=== PATIENT | female | born 1995 | race Caucasian/White ===

== ENCOUNTER 2016-03-22 17:28 | Emergency (ER) | payer BC ==
[2016-03-22] MEDS ORDERED: NS 0.9% 1000 ML* 1,000 ML IV ONE (18:45)
[2016-03-22 18:55] LABS: Hematocrit 38 % (35-47); Hemoglobin 13.1 g/dl (12.0-16.0); Mean Corpuscular HGB Conc 34 g/dl (31-36); Mean Corpuscular Hemoglobin 29 pg (27-31); Mean Corpuscular Volume 86 fL (80-97); Mean Platelet Volume 8 um3 (7.4-10.4); Red Blood Count 4.47 10^6/ul (4.0-5.4); Red Cell Distribution Width 12 % (10.5-15); White Blood Count 8.3 10^3/ul (3.5-10.8)
[2016-03-22 18:55] LABS: Urine Bilirubin Negative (Negative); Urine Glucose Negative (Negative); Urine Nitrite Negative (Negative)
[2016-03-22 19:06] LABS: ALT 9 U/L (7-52); AST 14 U/L (13-39); Albumin 3.9 g/dL (3.2-5.2); Alkaline Phosphatase 39 U/L (34-104); Anion Gap 6 mmol/L (2-11); BUN/Creatinine Ratio 12.3 (8-20); Blood Urea Nitrogen 9 mg/dL (6-24); C Reactive Protein 112.55 mg/L (< 5.00); CO2 Carbon Dioxide 27 mmol/L (22-32); Calcium 9.2 mg/dL (8.6-10.3); Chloride 100 mmol/L (101-111); EGFR African American 130.7 (>60); EGFR Non-African American 101.6 (>60); Globulin 3.5 g/dL (2-4); Glucose 92 mg/dL (70-100); Lipase 35 U/L (11.0-82.0); Potassium 3.3 mmol/L (3.5-5.0); Sodium 133 mmol/L (133-145); Total Protein 7.4 g/dL (6.4-8.9)
--- NOTE | 2016-03-22 20:09 | RAD ---
Indication: Right lower quadrant pain. COMPARISON: There are no prior studies available for comparison. TECHNIQUE: Multiple real-time transabdominal images of the pelvis were obtained. FINDINGS: The uterus is normal in size, shape and echogenicity. The uterus measured 7.7 x 3.2 x 4.6 cm. The endometrial echo measured 0.4 cm in thickness. The right ovary measured 2.4 x 1.2 x 1.8 cm. The left ovary measured 3.1 x 1.3 x 1.2 cm. There is vascular flow within both ovaries. There is a small amount of free intraperitoneal fluid in the cul-de-sac. IMPRESSION: SMALL AMOUNT OF FREE INTRAPERITONEAL FLUID IN THE CUL-DE-SAC, OTHERWISE UNREMARKABLE STUDY.
--- NOTE | 2016-03-22 20:12 | RAD ---
INDICATION: Right lower quadrant pain. COMPARISON: There are no prior studies available for comparison. TECHNIQUE: Multiple real-time images of the right lower quadrant were obtained using a graded compression technique. FINDINGS: There is a small amount of free intraperitoneal fluid in the right lower quadrant. No focal fluid collection or abscess is seen. The appendix was not visualized limiting the study. There is a short segment of aperistaltic small bowel noted. IMPRESSION: 1. THE APPENDIX WAS NOT VISUALIZED LIMITING THE STUDY, CONSIDER A CT OF THE ABDOMEN AND PELVIS WITH INTRAVENOUS AND ORAL CONTRAST FOR FURTHER EVALUATION. 2. SMALL AMOUNT OF FREE INTRAPERITONEAL FLUID IN THE RIGHT LOWER QUADRANT.
--- NOTE | 2016-03-22 22:35 | RAD ---
INDICATION: Right lower quadrant abdominal pain. COMPARISON: Comparison is made with a prior right lower quadrant ultrasound from earlier today. TECHNIQUE: A CT scan of the abdomen and pelvis was performed without intravenous or oral contrast. Contiguous axial sections were obtained from the lung bases through the symphysis pubis. Images were reconstructed in the coronal and sagittal planes. FINDINGS: The lung bases are clear. No pleural effusion is present. The liver appears mildly prominent without significant focal abnormality on this noncontrast study. The spleen is normal in size. The pancreas appears to be within normal limits in size. No calcified gallstones are seen. The adrenal glands and kidneys are normal in size. No renal calculi or hydronephrosis is seen. The aorta is normal in caliber without significant calcific plaque. No significant enlarged retroperitoneal lymph nodes are seen. The stomach, small and large bowel appear nondistended. The appendix is not visualized. There is a moderate amount retained stool. There is mild descending and sigmoid diverticulosis without evidence for diverticulitis. The uterus is anteverted and normal in size. There is a small amount of free intraperitoneal fluid in the cul-de-sac. No free intraperitoneal air is seen. There is a [id number] lumbar scoliosis convex toward the left side. No significant focal osseous abdomen normality is seen. IMPRESSION: 1. LIMITED STUDY, THE APPENDIX IS NOT VISUALIZED CONSIDER REPEAT IMAGING WITH IV AND ORAL CONTRAST. 2. SMALL AMOUNT OF FREE INTRAPERITONEAL FLUID IN THE CUL-DE-SAC.
[2016-03-23] MEDS ORDERED: Iohexol 300* (CONTRAST) 10 ML SDV IV ONE (00:58)
[2016-03-23 02:20] VITALS: BP 117/72
--- NOTE | 2016-03-23 07:55 | RAD ---
CLINICAL HISTORY: Right lower quadrant pain COMPARISON: March 22, 2016 TECHNIQUE: Multiple contiguous axial CT scans were obtained of the abdomen and pelvis after the administration of intravenous contrast. Coronal and sagittal multiplanar reformations are submitted for review. FINDINGS: LUNG BASES: The lung bases are clear. LIVER: There is focal fatty infiltration along the ligamentum teres hepatis BILE DUCTS: There is no intrahepatic or extrahepatic biliary dilatation. GALLBLADDER: The gallbladder is normal, without pericholecystic inflammatory change. PANCREAS: The pancreas is normal, without mass or ductal dilatation. SPLEEN: Normal in size and appearance. UPPER GI TRACT: Evaluation of the gastrointestinal tract is limited by incomplete gastric distention. The upper GI tract is unremarkable. SMALL BOWEL AND MESENTERY: There is mucosal thickening of the terminal ileum extending to the ileocecal valve. COLON: There is mucous thickening of the cecum. There is a tubular, vermiform, hollow viscus that is blind ending, and originates from the cecum, consistent with a normal appendix. There is no periappendiceal inflammatory change. ADRENALS: Normal bilaterally. KIDNEYS: The kidneys are normal in shape, size, contour, and axis. There is no hydronephrosis or nephrolithiasis. BLADDER: The bladder is incompletely distended but is grossly normal. PELVIC ORGANS: The uterus and adnexa are grossly normal for technique. AORTA: The aorta is normal. IVC: Unremarkable LYMPH NODES: There is no lymphadenopathy by size criteria. ABDOMINAL WALL: There is no evidence for abdominal wall hernia. BONES AND SOFT TISSUES: The bones and soft tissues are unremarkable. OTHER: None IMPRESSION: 1. MUCOSAL THICKENING OF THE TERMINAL ILEUM AND CECUM, CONCERNING FOR INFLAMMATORY BOWEL DISEASE. 2. NORMAL APPENDIX.
--- NOTE | 2016-03-24 00:35 | ED ---
Raymundo Eddy Matthew, scribed for Aquilino Garrison MD on 03/22/16 at 1854 . Abdominal Pain/Female - HPI Summary HPI Summary: A 20 y/o female presents to the ED with constant, gradually worsening RLQ abdominal pain since 2 days ago at 16:00. The pain is currently rated 4/10 in severity and 9/10 at its worst. The pain is described as camping and radiates around to the back and lower chest. The pain is worse with movement. Associated symptoms include nausea and SOB w/ pain. The patient denies vomiting, decreased appetite, fever, chills, diaphoresis, change in weight, diarrhea, constipation, and blood w/ stool. Her last BM was yesterday, which was softer than normal. LNMP 2 weeks ago. The patient is on control. She was sent from [facility] to r/o appendicitis. - History of Current Complaint Chief Complaint: EDAbdPain Stated Complaint[facility] Time Seen by Provider: 03/22/16 18:26 Hx Obtained From: Patient ?: No Onset/Duration: Gradual Onset, Lasting Days Timing: Constant Severity Initially: Moderate Severity Currently: Moderate Pain Intensity: 4 Pain Scale Used: 0-10 Numeric Location: Discrete At: RLQ Radiates: Yes Radiates to: Back Character: Cramping Aggravating Factor(s): Movement Alleviating Factor(s): Nothing Associated Signs and Symptoms: Positive: Back Pain, Nausea, Other: - SOB w/ pain. Negative: Diaphoresis, Fever, Constipation, Blood in Stool, Decreased Appetite, Vomiting, Diarrhea Allergies/Adverse Reactions: Allergies Allergy/AdvReac Type Severity Reaction Status Date / Time No Known Allergies Allergy Verified 03/22/16 17:50 PMH/Surg Hx/FS Hx/Imm Hx Previously Healthy: Yes Endocrine/Hematology History: Denies: Hx Diabetes Infectious Disease History: No Infectious Disease History: Denies: Traveled Outside the [place] in Last 30 Days - Family History Known Family History: Positive: Cardiac Disease, Diabetes Family History: FHx of [place] - Social History Occupation: Student - [employer] Alcohol Use: Occasionally Hx Substance Use: No Substance Use Type: Reports: None Hx Tobacco Use: No Smoking Status (MU): Never Smoked Tobacco Review of Systems Constitutional: Negative Negative: Fever, Chills, Skin Diaphoresis Positive: Photophobia ENT: Negative Cardiovascular: Negative Positive: Shortness Of Breath - w/ pain Positive: Abdominal Pain - RLQ, Nausea. Negative: Vomiting, Diarrhea Genitourinary: Negative Musculoskeletal: Negative Skin: Negative Neurological: Negative Psychological: Normal All Other Systems Reviewed And Are Negative: Yes Physical Exam Triage Information Reviewed: Yes Vital Signs On Initial Exam: Initial Vitals Temp Pulse Resp BP Pulse Ox 97.4 F 97 18 120/67 97 03/22/16 17:47 03/22/16 17:47 03/22/16 17:47 03/22/16 17:47 03/22/16 17:47 Vital Signs Reviewed: Yes Appearance: Positive: Well-Appearing, No Pain Distress Skin: Positive: Warm, Skin Color Reflects Adequate Perfusion, Dry Head/Face: Positive: Normal Head/Face Inspection Eyes: Positive: EOMI, VENECIA ENT: Positive: Normal ENT inspection Neck: Positive: Supple, Nontender Respiratory/Lung Sounds: Positive: Clear to Auscultation, Breath Sounds Present Cardiovascular: Positive: RRR Abdomen Description: Positive: [place]'s Point Tenderness, Other: - positive psoas; positive straight leg raise on the right Bowel Sounds: Positive: Present Musculoskeletal: Positive: Normal, Strength/ROM Intact Neurological: Positive: Normal, Sensory/Motor Intact, Alert, Oriented to Person Place, Time, CN Intact II-III Psychiatric: Positive: Normal, Affect/Mood Appropriate Diagnostics - Vital Signs Vital Signs Temp Pulse Resp BP Pulse Ox 03/22/16 17:47 97.4 F 97 18 120/67 97 - Laboratory Lab Results: Lab Results 03/22/16 03/22/16 03/22/16 Range/Units 18:31 18:35 18:35 WBC 8.3 (3.5-10.8) 10^3/ul RBC 4.47 (4.0-5.4) 10^6/ul Hgb 13.1 (12.0-16.0) g/dl Hct 38 (35-47) % MCV 86 (80-97) fL MCH 29 (27-31) pg MCHC 34 (31-36) g/dl RDW 12 (10.5-15) % Plt Count 227 (150-450) 10^3/ul MPV 8 (7.4-10.4) um3 Neut % (Auto) 65.6 (38-83) % Lymph % (Auto) 26.1 (25-47) % [place] % (Auto) 7.3 (1-9) % Eos % (Auto) 0.6 (0-6) % Baso % (Auto) 0.4 (0-2) % Absolute Neuts (auto) 5.4 (1.5-7.7) 10^3/ul Absolute Lymphs (auto) 2.2 (1.0-4.8) 10^3/ul Absolute Monos (auto) 0.6 (0-0.8) 10^3/ul Absolute Eos (auto) 0 (0-0.6) 10^3/ul Absolute Basos (auto) 0 (0-0.2) 10^3/ul Absolute Nucleated RBC 0 10^3/ul Nucleated RBC % 0 Sodium 133 (133-145) mmol/L Potassium 3.3 L (3.5-5.0) mmol/L Chloride 100 L (101-111) mmol/L Carbon Dioxide 27 (22-32) mmol/L Anion Gap 6 (2-11) mmol/L BUN 9 (6-24) mg/dL Creatinine 0.73 (0.51-0.95) mg/dL Est GFR ( Amer) 130.7 (>60) Est GFR (Non-Af Amer) 101.6 (>60) BUN/Creatinine Ratio 12.3 (8-20) Glucose 92 (70-100) mg/dL Lactic Acid (0.5-2.0) mmol/L Calcium 9.2 (8.6-10.3) mg/dL Total Bilirubin 0.30 (0.2-1.0) mg/dL AST 14 (13-39) U/L ALT 9 (7-52) U/L Alkaline Phosphatase 39 (34-104) U/L C-Reactive Protein 112.55 H (< 5.00) mg/L Total Protein 7.4 (6.4-8.9) g/dL Albumin 3.9 (3.2-5.2) g/dL Globulin 3.5 (2-4) g/dL Albumin/Globulin Ratio 1.1 (1-3) Lipase 35 (11.0-82.0) U/L Beta HCG, Quant < 0.60 mIU/mL Urine Color Yellow Urine Appearance Clear Urine pH 6.0 (5-9) Ur Specific [place] 1.011 (1.010-1.030) Urine Protein Negative (Negative) Urine Ketones Negative (Negative) Urine Blood Negative (Negative) Urine Nitrate Negative (Negative) Urine Bilirubin Negative (Negative) Urine Urobilinogen Negative (Negative) Ur Leukocyte Esterase Negative (Negative) Urine Glucose Negative (Negative) 03/22/16 Range/Units 18:35 WBC (3.5-10.8) 10^3/ul RBC (4.0-5.4) 10^6/ul Hgb (12.0-16.0) g/dl Hct (35-47) % MCV (80-97) fL MCH (27-31) pg MCHC (31-36) g/dl RDW (10.5-15) % Plt Count (150-450) 10^3/ul MPV (7.4-10.4) um3 Neut % (Auto) (38-83) % Lymph % (Auto) (25-47) % [place] % (Auto) (1-9) % Eos % (Auto) (0-6) % Baso % (Auto) (0-2) % Absolute Neuts (auto) (1.5-7.7) 10^3/ul Absolute Lymphs (auto) (1.0-4.8) 10^3/ul Absolute Monos (auto) (0-0.8) 10^3/ul Absolute Eos (auto) (0-0.6) 10^3/ul Absolute Basos (auto) (0-0.2) 10^3/ul Absolute Nucleated RBC 10^3/ul Nucleated RBC % Sodium (133-145) mmol/L Potassium (3.5-5.0) mmol/L Chloride (101-111) mmol/L Carbon Dioxide (22-32) mmol/L Anion Gap (2-11) mmol/L BUN (6-24) mg/dL Creatinine (0.51-0.95) mg/dL Est GFR ( Amer) (>60) Est GFR (Non-Af Amer) (>60) BUN/Creatinine Ratio (8-20) Glucose (70-100) mg/dL Lactic Acid 0.7 (0.5-2.0) mmol/L Calcium (8.6-10.3) mg/dL Total Bilirubin (0.2-1.0) mg/dL AST (13-39) U/L ALT (7-52) U/L Alkaline Phosphatase (34-104) U/L C-Reactive Protein (< 5.00) mg/L Total Protein (6.4-8.9) g/dL Albumin (3.2-5.2) g/dL Globulin (2-4) g/dL Albumin/Globulin Ratio (1-3) Lipase (11.0-82.0) U/L Beta HCG, Quant mIU/mL Urine Color Urine Appearance Urine pH (5-9) Ur Specific [place] (1.010-1.030) Urine Protein (Negative) Urine Ketones (Negative) Urine Blood (Negative) Urine Nitrate (Negative) Urine Bilirubin (Negative) Urine Urobilinogen (Negative) Ur Leukocyte Esterase (Negative) Urine Glucose (Negative) Result Diagrams: 03/22/16 18:35 03/22/16 18:35 Lab Statement: Any lab studies that have been ordered have been reviewed, and results considered in the medical decision making process. - Radiology A/P CT Xray Interpretation: No Acute Changes - IMPRESSION: 1. LIMITED STUDY, THE APPENDIX IS NOT VISUALIZED CONSIDER REPEAT IMAGING WITH IV AND ORAL CONTRAST. 2. SMALL AMOUNT OF FREE INTRAPERITONEAL FLUID IN THE CUL-DE-SAC. Radiology Interpretation Completed By: Radiologist - Ultrasound No standard instances Ultrasound Interpretation: No Acute Changes - IMPRESSION: SMALL AMOUNT OF FREE INTRAPERITONEAL FLUID IN THE CUL-DE-SAC, OTHERWISE UNREMARKABLE STUDY. Ultrasound Interpretation Completed By: Radiologist - Additional Comments Diagnostic Additional Comments: Abdomen US: IMPRESSION: 1. THE APPENDIX WAS NOT VISUALIZED LIMITING THE STUDY, CONSIDER A CT OF THE ABDOMEN AND PELVIS WITH INTRAVENOUS AND ORAL CONTRAST FOR FURTHER EVALUATION. 2. SMALL AMOUNT OF FREE INTRAPERITONEAL FLUID IN THE RIGHT LOWER QUADRANT. Abdominal Pain Fem Course/Dx - Course Course Of Treatment: Cate Early presented with RLQ pain accompanied by some nausea gradually increaseing over the last 2 days. An U/S was inadequate to view the appendix although it did R/U torsion, etc. Her CRP was elevated and WBC 's nl. A CT scan is pending at this time to R/U appendicitis. - Diagnoses Provider Diagnoses: Abdominal pain - Provider Notifications Discussed Care Of Patient With: Dr. Ackerman Time Discussed With Above Provider: 01:00 - Change of shift Discharge - Discharge Plan Condition: Stable Disposition: HOME Patient Education Materials: Acute Abdominal Pain (ED) Referrals: [facility] BRIAN Medina [Primary Care Provider] - 3 Days Additional Instructions: Please follow-up with a [facility] in 3 days. The documentation as recorded by the Raymundo jefferson Matthew accurately reflects the service I personally performed and the decisions made by me, Aquilino Garrison MD.
== END 2016-03-23 02:20 | disposition home or self-care (01) ==
LOC: ED 17:28
DX: R10.31 Right lower quadrant pain (principal)
CPT/HCPCS: 36415; 74176; 74177; 76705; 76856; 80053; 81003; 83605; 83690; 84702; 85025; 86140; 99282; Q9967